=== PATIENT | female | born 1995 | race Hispanic/Latino ===

== ENCOUNTER 2022-02-28 09:41 | Inpatient (IN) | payer OTHER ==
[2022-02-27 13:26] LABS: Hemoglobin 8.7 g/dL (12.0-15.5); Mean Corpuscular HGB CONC 31.3 g/dL (32.0-36.0); Mean Corpuscular Hemoglobin 22.5 pg (27.0-33.0); Platelet Count 162 10x3/uL (150-450); RBC Distribution Width 16.4 % (11.5-14.5); Red Blood Cell (RBC) Count 3.86 10x6/uL (3.90-5.03); White Blood Cell (WBC) Count 6.6 10x3/uL (3.5-10.5)
[2022-02-27 13:48] LABS: Hep B Surf Ag Non-Reactive S/CO (NonReactive)
[2022-02-27 13:51] LABS: HBSAg Index 0.18 S/CO (0-0.99)
[2022-02-27 13:52] LABS: Syphilis Antibody Nonreactive (Nonreactive); Syphilis Antibody Index 0.02 S/CO (<1.00 Non-Reactive)
[2022-02-28] MEDS ORDERED: Famotidine/PF 20 mg/2ml Vial SLOW IVP PRN (10:08)
[2022-02-28] MEDS ORDERED: hydrALAZINE 20 MG/ML VIAL SLOW IVP PRN ×2 (10:08→15:37)
[2022-02-28] MEDS ORDERED: Ondansetron PF 4 MG/2 ML Vial IVP PRN ×4 (10:08→15:37)
[2022-02-28] MEDS ORDERED: Promethazine HCl 25 MG/ML VIAL IM PRN ×4 (10:08→15:37)
[2022-02-28] MEDS ORDERED: Bicitra 30 ML UDCUP PO PRN (10:08)
[2022-02-28] MEDS ORDERED: ceFAZolin 2 GM/Dextrose 50 ML 2 GM in Premix Bag 1 BAG IVPB SCH (10:15)
[2022-02-28] MEDS: Lactated Ringer's 1,000 ML IV SCH ×2 (10:30→11:36)
[2022-02-28 10:48] LABS: Hemoglobin 8.8 g/dL (12.0-15.5); Mean Corpuscular Hemoglobin 22.2 pg (27.0-33.0); Mean Corpuscular Volume 71.7 fl (81.6-98.3); Red Blood Cell (RBC) Count 3.96 10x6/uL (3.90-5.03); White Blood Cell (WBC) Count 7.1 10x3/uL (3.5-10.5)
[2022-02-28 10:49] LABS: Platelet Count 159 10x3/uL (150-450); RBC Distribution Width 16.4 % (11.5-14.5)
[2022-02-28 10:50] VITALS: BMI 30.8
[2022-02-28 11:22] LABS: Syphilis Antibody Nonreactive (Nonreactive); Syphilis Antibody Index 0.03 S/CO (<1.00 Non-Reactive)
[2022-02-28 11:23] LABS: HBSAg Index 0.18 S/CO (0-0.99); Hep B Surf Ag NonReactive S/CO (NonReactive)
[2022-02-28] MEDS ORDERED: Famotidine/PF 20 mg/2ml Vial ONE (11:59)
[2022-02-28] MEDS ORDERED: ePHEDrine Sulfate 50 MG/10 ML VIAL ONE (12:09)
[2022-02-28] MEDS ORDERED: Ondansetron PF 4 MG/2 ML Vial ONE (12:09)
[2022-02-28] MEDS ORDERED: Oxytocin 10 UNITS/ML VIAL ONE ×2 (12:09→12:55)
[2022-02-28] MEDS ORDERED: Morphine PF 10 MG/10 ML VIAL ONE (12:09)
[2022-02-28 12:15] LABS: HIV (1/2) Antibody/Antigen Non-Reactive (NonReactive); HIV 1/2 INDEX 0.09 S/CO (<1.00)
[2022-02-28] MEDS ORDERED: Fentanyl 100 MCG/2 ML VIAL ONE (12:40)
[2022-02-28] MEDS ORDERED: Midazolam HCl 2 mg/2 ml Vial ONE (12:43)
[2022-02-28] MEDS ORDERED: PROPOFOL 0 ML ONE (12:43)
[2022-02-28] MEDS ORDERED: Ketamine 50 MG/ML (10ML VIAL) ONE (12:50)
[2022-02-28] MEDS ORDERED: fentaNYL Citrate/PF 1,000 MCG in Sodium Chloride 0.9% 30 ML IV PRN (13:44)
[2022-02-28] MEDS ORDERED: Zolpidem Tartrate 5 MG TAB PO PRN ×2 (13:44→15:37)
[2022-02-28] MEDS ORDERED: Naloxone HCl 0.4 mg/ml Vial IVP PRN ×2 (13:44)
[2022-02-28] MEDS ORDERED: Fentanyl 100 MCG/2 ML VIAL SLOW IVP PRN (13:44)
[2022-02-28] MEDS ORDERED: Naloxone HCl 0.4 mg/ml Vial IV PRN ×2 (13:44)
[2022-02-28] MEDS ORDERED: Meperidine HCl/PF 25 MG/ML VIAL SLOW IVP PRN (13:44)
[2022-02-28] MEDS ORDERED: diphenhydrAMINE 50 MG/ML VIAL IM PRN (13:44)
[2022-02-28] MEDS ORDERED: diphenhydrAMINE 25 MG CAP PO PRN (13:44)
[2022-02-28] MEDS ORDERED: Promethazine HCl 25 MG SUPP PR PRN (13:44)
[2022-02-28] MEDS ORDERED: Ketorolac Tromethamine 30 MG/ML VIAL IVP PRN (13:44)
[2022-02-28] MEDS ORDERED: diphenhydrAMINE 50 MG/ML VIAL IVP PRN ×2 (13:44)
[2022-02-28] MEDS ORDERED: Ondansetron HCl/PF 4 MG/2 ML Vial IVP PRN (13:44)
[2022-02-28] MEDS ORDERED: Moisturizing Cream (Eucerin) 113 GM JAR TOP PRN (13:44)
[2022-02-28] MEDS ORDERED: Communication Order-Pharmacy FS SCH ×2 (13:45)
[2022-02-28] MEDS ORDERED: Ketorolac Tromethamine 30 MG/ML VIAL IVP SCH (13:45)
[2022-02-28] MEDS ORDERED: Boostrix 0.5 ML (Tdap) VIAL IM ONE (15:37)
[2022-02-28] MEDS ORDERED: Measles/Mumps/Rubella 10 MCG/0.5 ML VIAL SC ONE (15:37)
[2022-02-28] MEDS ORDERED: Methylergonovine 0.2 MG/ML VIAL IM PRN (15:37)
[2022-02-28] MEDS ORDERED: Varicella virus, LIVE 0.5 ML VIAL SC ONE (15:37)
[2022-02-28] MEDS ORDERED: HYDROcodone/Acetaminophen 5/325 mg Tablet PO PRN (15:37)
[2022-02-28] MEDS ORDERED: Lanolin Ointment 7 GM TUBE TOP PRN (15:37)
[2022-02-28] MEDS ORDERED: NS w/ Oxytocin 30 units 500 ML IV SCH (15:37)
[2022-02-28] MEDS: Ferrous Sulfate 325 MG TAB PO SCH (21:59)
[2022-02-28] MEDS: Docusate 100 MG CAP PO SCH (21:59)
[2022-03-01 04:11] LABS: Hemoglobin 7.5 g/dL (12.0-15.5); Mean Corpuscular HGB CONC 31.3 g/dL (32.0-36.0); Mean Corpuscular Hemoglobin 22.5 pg (27.0-33.0); Mean Corpuscular Volume 71.9 fl (81.6-98.3); Platelet Count 140 10x3/uL (150-450); RBC Distribution Width 16.5 % (11.5-14.5); Red Blood Cell (RBC) Count 3.34 10x6/uL (3.90-5.03); White Blood Cell (WBC) Count 10.8 10x3/uL (3.5-10.5)
[2022-03-01] MEDS: Ibuprofen 800 MG TAB PO SCH ×4 (04:48→22:31)
[2022-03-01] MEDS: Docusate 100 MG CAP PO SCH ×2 (10:17→22:31)
[2022-03-01] MEDS: Ferrous Sulfate 325 MG TAB PO SCH ×2 (10:17→22:31)
[2022-03-01] MEDS: Prenatal Vitamin 1 TAB PO SCH (10:18)
[2022-03-01] MEDS: HYDROcodone/Acetaminophen 5/325 mg Tablet PO PRN ×3 (11:35→22:31)
[2022-03-01] MEDS: Simethicone Chewable 80 MG TAB PO PRN ×2 (11:36→19:39)
[2022-03-02] MEDS: Simethicone Chewable 80 MG TAB PO PRN ×4 (01:17→17:55)
[2022-03-02] MEDS: HYDROcodone/Acetaminophen 5/325 mg Tablet PO PRN ×4 (03:43→22:11)
[2022-03-02] MEDS: Ibuprofen 800 MG TAB PO SCH ×3 (05:38→21:17)
[2022-03-02] MEDS: Prenatal Vitamin 1 TAB PO SCH (09:15)
[2022-03-02] MEDS: Ferrous Sulfate 325 MG TAB PO SCH ×2 (09:16→21:17)
[2022-03-02] MEDS: Docusate 100 MG CAP PO SCH ×2 (09:16→21:19)
[2022-03-03] MEDS: Ibuprofen 800 MG TAB PO SCH (06:14)
[2022-03-03] MEDS: HYDROcodone/Acetaminophen 5/325 mg Tablet PO PRN ×2 (06:15→12:01)
[2022-03-03 08:21] VITALS: BP 105/58; TEMP 97.9
[2022-03-03] MEDS: Prenatal Vitamin 1 TAB PO SCH (08:22)
[2022-03-03] MEDS: Docusate 100 MG CAP PO SCH (08:23)
[2022-03-03] MEDS: Ferrous Sulfate 325 MG TAB PO SCH (08:23)
== END 2022-03-03 12:40 | disposition home or self-care (01) | DRG 788 ==
LOC: CSHLD 09:41 → CSHPP 15:49
PROVIDERS: ADMIT Obstetrics & Gynecology; ATTEND Obstetrics & Gynecology
PROC: 10D00Z1 Extraction of Products of Conception, Low, Open Approach (ICD-10-PCS; principal; 2022-02-28)
DX: O34.211 Maternal care for low transverse scar from previous cesarean delivery (principal); Z3A.39 39 weeks gestation of pregnancy; Z37.0 Single live birth; Z79.899 Other long term (current) drug therapy; Z20.822 Contact with and (suspected) exposure to COVID-19
CPT/HCPCS: 36415; 51702; 85027; 86762; 86780; 86850; 86900; 86901; 87340; 87389; 90707; J0690; J1885; J2250; J2274; J2405; J2590; J2704; J3010; J3490; J7120; S0028; U0003; U0005